=== PATIENT | male | born 1975 ===

== ENCOUNTER 2016-12-28 09:01 | Emergency (ER) | payer SELFPAY ==
[2016-12-28 09:29] LABS: BASOPHILS % 0.4 (0.0-1.5); EOSINOPHILS % 1.5 % (0.0-6.8); MEAN CORPUSCULAR HEMOGLOBIN 31.3 pg (28.0-34.0); MEAN CORPUSCULAR VOLUME 95.7 fl (80.0-100.0); MONOCYTES % 6.2 % (0.0-11.0); NEUTROPHILS # 7.8 # k/uL (1.4-7.7)
[2016-12-28] MEDS ORDERED: KETOROLAC TROMETHAMINE 60 MG/2 ML VIAL IM ONE (09:30)
[2016-12-28 09:45] LABS: eGFR (African) > 60; eGFR (Non-African) > 60
[2016-12-28 09:57] LABS: APPEARANCE,URINE Clear (CLEAR); COLOR,URINE Amber (YELLOW); OCCULT BLOOD,URINE Negative (NEGATIVE); UROBILINOGEN URINE >=8.0 Eu (0.2-1.0)
[2016-12-28 10:10] LABS: AMORPHOUS SEDIMENT,UR FEW (NEGATIVE)
--- NOTE | 2016-12-28 10:30 | ED Physician Documentation ---
Abdominal Pain - HISTORIAN Historian: patient - HPI Stated Complaint: left upper outter quadrant pain and left shoulder pain Chief Complaint: Abdominal Pain Onset: days ago (yesterday) Duration: waxing, waning Timing: worse Context: other ([facility] admission 12/15/2016). denies: out of country travel , bad food, recent trauma Severity: severe Quality: pain Associated Symptoms: denies: fever, chills, nausea, vomiting, bloody emesis, diarrhea, bloody stools, sweating, loss of appetite, testicular pain, back pain Exacerbated by: upright position, other (movement, deep breath, raising arms) Relieved by: nothing Further Comments: yes (41 year old male patient presents with complaint of LUQ pain which started yesterday. Patient denies any nausea, vomiting, fever, or diarrhea. Denies any heavy lifting.) - ROS CONST: no problems GI/: none CVS/RESP: none EYES/ENT: none MS/SKIN/LYMPH: none NEURO/PSYCH: none - SOCIAL HX Smoking History: cigarettes Alcohol Use: heavy (1 case per day, no ETOH since 12/15/2016) - FAMILY HX Family History: other (CAD, HTN) - PAST HX Past History: none Ischemic Bowel Risk Factors: none Other History: none Home Medications: Ambulatory Orders Medication Instructions Recorded Acetaminophen [Tylenol Extra 1,000 mg PO Q4 PRN 12/28/16 Strength] Bupropion HCl [Wellbutrin Xl] 150 mg PO DAILY 12/28/16 Chlordiazepoxide HCl [Librium] 25 mg PO QID PRN 12/28/16 Ibuprofen [Advil] 400 mg PO Q4 PRN 12/28/16 Melatonin [Melatonin] 5 mg PO HS PRN 12/28/16 Naltrexone HCl [Revia] 50 mg PO DAILY 12/28/16 Oxazepam [Serax] 15 mg PO QID PRN 12/28/16 Thiamine HCl [Vitamin B-1] 100 mg PO DAILY 12/28/16 Trazodone HCl [Trazodone HCl] 50 mg PO HS 12/28/16 diphenhydrAMINE HCL [Benadryl] 25 mg PO Q4 PRN 12/28/16 Allergies/Adverse Reactions: Allergies Allergy/AdvReac Type Severity Reaction Status Date / Time Penicillins Allergy Verified 12/28/16 09:33 - VITAL SIGNS Vital Signs: Vital Signs Temp Pulse Resp BP Pulse Ox 37.2 F L 73 20 142/72 97 12/28/16 09:01 12/28/16 11:05 12/28/16 11:05 12/28/16 11:05 12/28/16 11:05 - REVIEWED ASSESSMENTS Nursing Assessment Reviewed: Yes Vitals Reviewed: Yes Progress - Progress Progress: Reviewed lab from [facility], Liver enzymes improving. 12/18/2016 AST 170 ALT 111 Alk Phos 340 ED Results Lab/Radiology - Lab Results Lab Results: Lab Results 12/28/16 12/28/16 12/28/16 09:55 09:47 09:25 WBC RBC Hgb Hct MCV MCH MCHC RDW Plt Count Neut % (Auto) Lymph % (Auto) [place] % (Auto) Eos % (Auto) Baso % (Auto) Neut # Lymph # [place] # Eos # Baso # Reactive Lymphs % Reactive Lymphs # Sodium 136 mmol/L mmol/L (136-145) Potassium 3.7 mmol/L mmol/L (3.5-5.0) Chloride 102 mmol/L mmol/L (98-110) Carbon Dioxide 26 mmol/L mmol/L (20-32) BUN 5 mg/dL L mg/dL (10-26) Creatinine 0.7 mg/dL mg/dL (0.4-1.5) Estimated Creat Clear 174 Est GFR ( Amer) > 60 (60 - ) Est GFR (Non-Af Amer) > 60 (60 - ) Glucose 146 mg/dL H mg/dL (70-99) Calcium 9.7 mg/dL mg/dL (8.5-10.5) Total Bilirubin 1.0 mg/dL mg/dL (0.2-1.2) AST 129 U/L H U/L (0-41) ALT 128 U/L H U/L (0-45) Alkaline Phosphatase 327 U/L H U/L (46-116) Total Protein 8.2 g/dL g/dL (6.0-8.5) Albumin 4.5 g/dL g/dL (3.0-5.5) Amylase 73 U/L U/L (20-104) Urine Color Paulette (YELLOW) Urine Appearance Clear (CLEAR) Urine pH 6.0 (5.0 - 8.0) Ur Specific [place] 1.015 (1.010-1.030) Urine Protein 1+ mg/dL H mg/dL (NEGATIVE) Urine Ketones Trace mg/dL mg/dL (NEGATIVE) Urine Occult Blood Negative (NEGATIVE) Urine Nitrite Negative (NEGATIVE) Urine Bilirubin 2+ H (NEGATIVE) Urine Urobilinogen >=8.0 Eu H Eu (0.2-1.0) Ur Leukocyte Esterase Negative (NEGATIVE) Urine RBC 2-5 H (0-2 HPF) Urine WBC 0-2 (0-5 HPF) Ur Squamous Epith Cells Few (NEG-FEW) Amorphous Sediment Few H (NEGATIVE) Urine Mucus Present H (NEGATIVE) Urine Glucose Negative mg/dL mg/dL (NEGATIVE) 12/28/16 09:25 WBC 10.00 K/ul K/ul (4.00-12.00) RBC 4.66 M/ul M/ul (3.90-5.20) Hgb 14.6 g/dL g/dL (12.0-18.0) Hct 44.6 % % (37.0-53.0) MCV 95.7 fl fl (80.0-100.0) MCH 31.3 pg pg (28.0-34.0) MCHC 32.8 g/dL g/dL (30.0-36.0) RDW 13.2 % % (11.3-14.3) Plt Count 275 K/mm3 K/mm3 (130-400) Neut % (Auto) 78.7 % % (39.0-79.0) Lymph % (Auto) 10.5 % L % (16.0-50.0) [place] % (Auto) 6.2 % % (0.0-11.0) Eos % (Auto) 1.5 % % (0.0-6.8) Baso % (Auto) 0.4 (0.0-1.5) Neut # 7.8 # k/uL H # k/uL (1.4-7.7) Lymph # 1.0 # k/uL # k/uL (0.6-4.0) [place] # 0.6 # k/uL # k/uL (0.0-0.9) Eos # 0.2 # k/uL # k/uL (0.0-0.6) Baso # 0.0 # k/uL # k/uL (0.0-0.5) Reactive Lymphs % 2.7 % % (0.0-5.0) Reactive Lymphs # 0.3 # k/uL # k/uL (0.0-0.8) Sodium Potassium Chloride Carbon Dioxide BUN Creatinine Estimated Creat Clear Est GFR ( Amer) Est GFR (Non-Af Amer) Glucose Calcium Total Bilirubin AST ALT Alkaline Phosphatase Total Protein Albumin Amylase Urine Color Urine Appearance Urine pH Ur Specific [place] Urine Protein Urine Ketones Urine Occult Blood Urine Nitrite Urine Bilirubin Urine Urobilinogen Ur Leukocyte Esterase Urine RBC Urine WBC Ur Squamous Epith Cells Amorphous Sediment Urine Mucus Urine Glucose - Orders Orders: ED Orders Category Date Time Status Place IV Lock 1T Care 12/28/16 09:14 Active ABDOMEN COMPLETE [RAD] Stat Exams 12/28/16 Completed AMYLASE Stat Lab 12/28/16 09:47 Completed CBC/PLATELET/DIFF NOW Lab 12/28/16 09:25 Completed CMP NOW Lab 12/28/16 09:25 Completed UA W/MICRO IF INDICATED NOW Lab 12/28/16 09:55 Completed Ketorolac Tromethamine [Toradol] Med 12/28/16 09:30 Discontinued 60 mg IM NOW ONE Simethicone [Gas-X] Med 12/28/16 10:49 Discontinued 160 mg PO NOW ONE Abdominal Pain Physical Exam - Physical Exam General Appearance: mild distress EENT: eye inspection normal, GIOVANY RESPIRATORY: no resp distress, chest non-tender, breath sounds normal CVS: reg rate & rhythm, heart sounds normal, equal pulses, no murmur, no gallop , PMI nml, no JVD, no friction rub, 24 ABDOMEN: soft, no organomegaly, normal bowel sounds, no abdominal bruit, no distension, tenderness (Left lateral mid abdomen with deep palpation). No: McBurney's point tenderne, psoas, obturator sign, rebound, distended, guarding SKIN: normal color, warm/dry, NR, INT, PAL, DR EXTREMITIES: non-tender, normal range of motion, no evidence of injury, no edema , J, DISPLAY FABRICATOR NEURO: oriented X3, CN's nml as tested, motor nml, sensation nml Vital Signs: Vital Signs Temp Pulse Resp BP Pulse Ox 37.2 F L 73 20 142/72 97 12/28/16 09:01 12/28/16 11:05 12/28/16 11:05 12/28/16 11:05 12/28/16 11:05 Discharge Clincal Impression: Flatulence, eructation and gas pain Referrals: Lianna Wong FNP [Primary Care Provider] - 2 Days Additional Instructions: Start fish oil - 1000mg twice a day for your triglycerides of 385 Have lipid profile recheck after discharge with your primary care physician. Anti- gas medication - over the counter, as needed. Such as simethicone, gas- ex or beano. Home Medications: Ambulatory Orders Acetaminophen [Tylenol Extra Strength] 1,000 mg PO Q4 PRN 12/28/16 Bupropion HCl [Wellbutrin Xl] 150 mg PO DAILY 12/28/16 Chlordiazepoxide HCl [Librium] 25 mg PO QID PRN 12/28/16 Ibuprofen [Advil] 400 mg PO Q4 PRN 12/28/16 Melatonin [Melatonin] 5 mg PO HS PRN 12/28/16 Naltrexone HCl [Revia] 50 mg PO DAILY 12/28/16 Oxazepam [Serax] 15 mg PO QID PRN 12/28/16 Thiamine HCl [Vitamin B-1] 100 mg PO DAILY 12/28/16 Trazodone HCl [Trazodone HCl] 50 mg PO HS 12/28/16 diphenhydrAMINE HCL [Benadryl] 25 mg PO Q4 PRN 12/28/16 Condition: Stable Disposition: 01 HOME, SELF-CARE Decision to Admit: NO Decision Time: 10:51
[2016-12-28] MEDS ORDERED: SIMETHICONE 80 MG TAB.CHEW PO ONE (10:49)
--- NOTE | 2016-12-28 11:02 | Diagnostic Imaging Report ---
[facility] [address] [facility].[address] [address] Report Submission Date: Dec 28, 2016 10:48:33 AM CDT Patient Study Name: CLAIRE WESTBROOK Date: Dec 28, 2016 10:29:37 AM CDT Modality Type: CR Gender: M Description: ABDOMEN : 79 Institution: [facility] Physician: HOWIE GARZON ([employer]) - ER Abdomen AP view. History: Left-sided pain. Findings: The bowel gas pattern is normal. There is no evidence of obstruction. No abnormal intraabdominal calcifications are noted. The lung bases are clear. The osseous structures are normal. Impression: 1. Normal bowel gas pattern. Electronically signed on Dec 28, 2016 10:48:33 AM CDT by: Magdiel CHENG
[2016-12-28 11:07] VITALS: BP 142/72
== END 2016-12-28 11:11 | disposition home or self-care (01) ==
LOC: ED 09:01
DX: R14.1 Gas pain (principal)
CPT/HCPCS: 74020; 80053; 81002; 82150; 85025; J1885; 96372; 99282; 99283; S1016